=== PATIENT | male | born 1960 | race Caucasian/White ===

== ENCOUNTER 2019-12-20 10:49 | Emergency (ER) | payer OTHER, SELFPAY ==
[2019-12-20 11:04] VITALS: BP 138/69; PULSE 61; RESP 18; TEMP 35.8; O2SAT 99; BMI 28.7
--- NOTE | 2019-12-20 11:13 | PC.NURSE ---
denies any loss of bowel or bladder function. denies numbness
--- NOTE | 2019-12-20 11:23 | DI.RAD.S_ITS ---
PROCEDURE: XR HIP W PEL IF DONE LT 2V INDICATIONS: left lateral hip pain down to groin, hx DJD TECHNIQUE: AP pelvis with lateral view(s) of the left hip(s). COMPARISON: None. FINDINGS: Bones: No definite, displaced fractures are seen. No dislocation. No suspicious lytic or blastic lesions are seen. There is moderate to severe superior joint space narrowing seen of left hip, with associated remodeling changes with subchondral sclerosis and osteophyte formation. Moderate degenerative changes are seen of the right hip. Age-appropriate lower lumbar spine degenerative changes are noted. Soft tissues: The visualized bowel gas pattern is normal. No suspicious soft tissue calcifications. IMPRESSION: Moderate to severe left hip degenerative change. If there is point tenderness (or other clinical suspicion for a fracture not seen on these images) then a dedicated CT or a short-term followup plain film series could be considered for further evaluation, as clinically appropriate. Dictated by: Toan Alexandre M.D. on 12/20/2019 at 11:19 Approved by: Toan Alexandre M.D. on 12/20/2019 at 11:21
--- NOTE | 2019-12-20 11:58 | ED_ITS ---
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 Patient denies fever, chills, nausea or vomiting. Reports had 3rd stem cell injection done about 5-6 weeks ago. Patient reports pain has been going on for last 3 weeks and has been treating himself with meloxicam and ice for bursitis after he spoke with his primary care physician in [place]. Patient felt improved symptoms but last 36 hours patient experienced recurring acute pain. He and significant are from [place] but they have been a boat in [facility]. Patient had road electrical bike for 45 minutes and also increased walking up and down the stairs and lifting heavy objects prior recurring pain in his left hip. Patient reports some heaviness, numbness occasionally in left lateral plantar foot. Patient reports left hip a feels little tight and possibly has mild swelling into the joint. Patient reports pain was very severe severe and rated as 10/10 with sharp, aching, pulsating, throbbing and he took his significant other's old pain medication hydrocodone 2 tabs at around 4:00 a.m. and had taken meloxicam 15 mg at 8:15 a.m. without much relief. Reports pain slightly decreased to 7/10 pain at this time. Patient reports pain increases with elevating and flexing affected leg or changing in position/movement and slightly improves with straightening out the leg. Patient's significant other inquiring about steroid joint injection with this to be done today. Related Data Previous Rx's Medication Instructions Recorded lidocaine 1 patch TOP Q24H PRN #30 each 12/20/19 oxycodone-acetaminophen [Percocet] 1 tab PO TID PRN #10 tab 12/20/19 prednisone 40 mg PO DAILY 4 Days #8 tab 12/20/19 Allergies Allergy/AdvReac Type Severity Reaction Status Date / Time No Known Drug Allergies Allergy Verified 12/20/19 12:16 Review of Systems <JORDON Lauren - Last Filed: 12/20/19 13:06> Review of Systems Narrative: General: Denies fever, chills, fatigue, malaise, sweats. HEENT: Denies sinus pain, ear pain, sore throat, difficulty swallowing, dizziness. Respiratory: Denies dyspnea, cough, wheezing, hemoptysis, sputum. Cardiovascular: Denies chest pain, palpitations, orthopnea, edema. Gastrointestinal: Denies nausea, vomiting, abdominal pain, diarrhea, constipation, melena. : Denies dysuria, frequency, incontinence, hematuria, urinary retention. Musculoskeletal: See HPI Skin: Denies rash, skin lesions, or other. Neurologic: Denies weakness, headache, numbness, change in speech, confusion, seizures, incoordination. Psychiatric: No concerning psychosocial issues. 12-point review of systems is negative except for those stated above. Patient History <JORDON Lauren - Last Filed: 12/20/19 13:06> Medical History (Updated 12/20/19 @ 12:36 by JORDON Lauren) Degenerative joint disease of left hip (Acute) Social History Smoking Status: Never smoker Smoking Status: Never smoker alcohol intake frequency: 3 or more drinks per day Substance Use Type: marijuana Exam <JORDON Lauren - Last Filed: 12/20/19 13:06> Narrative Exam Narrative: General appearance: well developed, well nourished, in no acute distress. Head: normocephalic, atraumatic, no scalp lesions, non-tender. ENT: Hearing grossly intact. Airway patent. Neck/Thyroid: neck supple, full range of motion, no visible masses or meningeal signs. No JVD, non-tender without lymphadenopathy. Skin: no suspicious rashes, lesions over visible areas. Warm and dry and appropriate color for ethnicity. Heart: no clubbing, no cyanosis, no edema. Lungs: Breathing even and unlabored. No stridor. No accessory muscles used. Able to speak in full sentences. Chest: normal shape and expansion. Abdomen: non-obese, non-distended. Neurologic: alert and oriented. Cognitive exam, [employer] and PNS grossly intact on informal exam. Psych: good eye contact, normal affect. Initial Vital Signs Initial Vital Signs: Vital Signs Temperature 96.5 F L 12/20/19 11:04 Pulse Rate 61 12/20/19 11:04 Respiratory Rate 18 12/20/19 11:04 Blood Pressure 138/69 12/20/19 11:04 Pulse Oximetry 99 12/20/19 11:04 Extrem General: normal to inspection and full ROM Left lower extremity: hip/thigh Details: normal to inspection, tenderness Location: of the hip Location: laterally, posteriorly and anterolaterally and normal ROM; no swelling, no lacerations, no crepitus, no deformity and no unusual warmth and foot Details: normal to inspection, toes with normal ROM, no edema, vascular exam Details: dorsalis pedis pulse present and normal capillary refill, tendon exam Details: active flexion normal and active extension normal and motor-sensory exam Details: light-touch normal; no tenderness and no unusual warmth <Ariel Valles DO - Last Filed: 12/20/19 13:59> Initial Vital Signs Initial Vital Signs: Vital Signs Temperature 96.5 F L 12/20/19 11:04 Pulse Rate 61 12/20/19 11:04 Respiratory Rate 18 12/20/19 11:04 Blood Pressure 138/69 12/20/19 11:04 Pulse Oximetry 99 12/20/19 11:04 Scores <JORDON Lauren - Last Filed: 12/20/19 13:06> GCS Felton coma scale eye opening: Spontaneous Felton coma scale verbal response: Orientated Felton coma scale motor response: Obey commands Brenda coma scale total score: 15 qSOFA Altered Mental Status (GCS <15): No Respiratory rate greater than/equal to 22: No Systolic blood pressure less than or equal to 100: No qSOFA Total: 0 0-1 Not High Risk 1-3 High risk Course <JORDON Lauren - Last Filed: 12/20/19 13:06> Orders Ordered: ED Orders 12/20/19 11:23 XR hip w pel if done LT 2V Stat Discontinued Medications Hydromorphone HCl (Dilaudid) 1 mg IM NOW ONE Stop: 12/20/19 11:24 Last Admin: 12/20/19 12:23 Dose: Not Given Documented by: MP Hydromorphone HCl (Dilaudid) 0.5 mg IM NOW ONE Stop: 12/20/19 12:13 Last Admin: 12/20/19 12:19 Dose: 0.5 mg Documented by: MP Ketorolac Tromethamine (Toradol) 30 mg IM NOW ONE Stop: 12/20/19 11:24 Last Admin: 12/20/19 12:22 Dose: 30 mg Documented by: MP Lidocaine (Lidoderm) 1 each TOP NOW ONE Stop: 12/20/19 11:24 Last Admin: 12/20/19 12:21 Dose: 1 each Documented by: MP Lidocaine (Lidoderm (Remove Patch)) 1 each TOP BEDTIME LAZARO Pantoprazole Sodium (Protonix) 20 mg PO NOW ONE Stop: 12/20/19 11:27 Last Admin: 12/20/19 12:21 Dose: 20 mg Documented by: MP Prednisone (Deltasone) 40 mg PO NOW ONE Stop: 12/20/19 11:27 Last Admin: 12/20/19 12:21 Dose: 40 mg Documented by: MP Vital Signs Vital signs: Vital Signs - 8 hr 12/20/19 11:04 12/20/19 13:17 Temperature 96.5 F L Pulse Rate 61 78 Respiratory Rate 18 15 Blood Pressure 138/69 122/76 Pulse Oximetry 99 100 <Ariel Valles DO - Last Filed: 12/20/19 13:59> Orders Ordered: ED Orders 12/20/19 11:23 XR hip w pel if done LT 2V Stat Discontinued Medications Hydromorphone HCl (Dilaudid) 1 mg IM NOW ONE Stop: 12/20/19 11:24 Last Admin: 12/20/19 12:23 Dose: Not Given Documented by: MP Hydromorphone HCl (Dilaudid) 0.5 mg IM NOW ONE Stop: 12/20/19 12:13 Last Admin: 12/20/19 12:19 Dose: 0.5 mg Documented by: MP Ketorolac Tromethamine (Toradol) 30 mg IM NOW ONE Stop: 12/20/19 11:24 Last Admin: 12/20/19 12:22 Dose: 30 mg Documented by: MP Lidocaine (Lidoderm) 1 each TOP NOW ONE Stop: 12/20/19 11:24 Last Admin: 12/20/19 12:21 Dose: 1 each Documented by: MP Lidocaine (Lidoderm (Remove Patch)) 1 each TOP BEDTIME LAZARO Pantoprazole Sodium (Protonix) 20 mg PO NOW ONE Stop: 12/20/19 11:27 Last Admin: 12/20/19 12:21 Dose: 20 mg Documented by: MP Prednisone (Deltasone) 40 mg PO NOW ONE Stop: 12/20/19 11:27 Last Admin: 12/20/19 12:21 Dose: 40 mg Documented by: MP Vital Signs Vital signs: Vital Signs - 8 hr 12/20/19 11:04 12/20/19 13:17 Temperature 96.5 F L Pulse Rate 61 78 Respiratory Rate 18 15 Blood Pressure 138/69 122/76 Pulse Oximetry 99 100 MDM - Extremity (Nontraumatic) <JORDON Lauren - Last Filed: 12/20/19 13:06> Differential Diagnosis Differential diagnosis: Likely other (DJD hip, bursitis, infection, fracture) Medical Records Attestation: I reviewed the patient's medical records. Imaging Data XR-Hip LT: Radiologist's Impression: [address] [id number] XRay Report Signed Patient: JESSIE HENDERSON EMR#: [id number] : 1960Acct:[id number] Age/Sex: 59 / MDate of Service: 12/20/19 Loc: ED Accession Number: [id number] Procedure: XR hip w pel if done LT 2V Ordering Provider: Helio Renteria PROCEDURE: XR HIP W PEL IF DONE LT 2V INDICATIONS: left lateral hip pain down to groin, hx DJD TECHNIQUE: AP pelvis with lateral view(s) of the left hip(s). COMPARISON: None. FINDINGS: Bones: No definite, displaced fractures are seen. No dislocation. No suspicious lytic or blastic lesions are seen. There is moderate to severe superior joint space narrowing seen of left hip, with associated remodeling changes with subchondral sclerosis and osteophyte formation. Moderate degenerative changes are seen of the right hip. Age-appropriate lower lumbar spine degenerative changes are noted. Soft tissues: The visualized bowel gas pattern is normal. No suspicious soft tissue calcifications. IMPRESSION: Moderate to severe left hip degenerative change. If there is point tenderness (or other clinical suspicion for a fracture not seen on these images) then a dedicated CT or a short-term followup plain film series could be considered for further evaluation, as clinically appropriate. Dictated by: Toan Alexandre M.D. on 12/20/2019 at 11:19 Approved by: Toan Alexandre M.D. on 12/20/2019 at 11:21 MDM Narrative Medical decision making narrative: This is a 59-year-old male who presents to ED with nontraumatic left posterolateral hip pain radiating down to his groin for last 3 weeks and worsening for last 36 hours. Patient has 3rd stem cell injection on affected site about 5-6 weeks ago. No signs of infection, patient is afebrile with normotensive, heart rate and respiration. Patient reports before acute pain occurred he has increased physical activities by writing electrical bike and walking up and down the stairs and carrying heavy objects. X-ray test does not show acute findings such as fractures or dislocations. Significant other requesting steroid injection to the joint or MRI test which is not available ED today. Patient's pain was managed with injection of Dilaudid and Toradol, lidocaine patch, prednisone oral. Patient advised to follow-up with his primary care physician/orthopedist for further intervention and possible imaging test. Patient discharged to home with previous medications for acute pain management with return precautions. Patient and spouse verbalized understanding and agreement with the treatment plan. Discharge Plan Departure Patient Disposition: Home Clinical Impression: Joint pain of left hip on movement Discharge Date/Time: 12/20/19 13:18 Instructions: DI for Hip Pain Activity Restrictions/Additional Instructions: You have been diagnosed with [ left hip pain, likely from degenerative joint in left hip/bursitis.] What to do: *Take your medications as directed. Please continue with prednisone next 4 more days. You can continue to use meloxicam. Add Tylenol as needed for discomfort. Lidocaine patch on affected site as needed for pain. You can use OTC omeprazole to protect stomach when you're taking steroids and meloxicam. Percocet is narcotic medication and use it for severe pain. Percocet contains 325 mg of Tylenol as well. As an adult, you can take up to 3-4000 mg of Tylenol products in 24 hour period. *Follow up with your primary care provider in 2-3 days, call for an appointment. Let them know you were seen in the ED and that we asked you to be seen in follow up. *Return to ED if you have any new, worsening, or concerning symptoms, such as [worsening pain, fever, chills, unable to tolerate fluids, decreased strength or sensation on affected leg, chest pain, breathing difficulty, or any acute concerns]. Prescriptions: New prednisone 20 mg tablet 40 mg PO DAILY 4 Days Qty: 8 RF: 0 lidocaine 5 % adhesive patch,medicated 1 patch TOP Q24H PRN (Reason: Pain) Qty: 30 RF: 0 oxycodone-acetaminophen [Percocet] 5-325 mg tablet 1 tab PO TID PRN (Reason: pain) Qty: 10 RF: 0 Referrals: [facility] [Provider Group] <Ariel Valles DO - Last Filed: 12/20/19 13:59> Cosign ED Attending Timothyature Attestation: I was immediately available in the department for consultation. This documentation has been reviewed and I agree with assessment and plan. Supervised by Ariel Valles DO
[2019-12-20] MEDS: HYDROMORPHONE 1 MG INJ 0.5 MG IM (12:19)
[2019-12-20] MEDS: LIDOCAINE PATCH 1 EACH ADH..PATCH TOP (12:21)
[2019-12-20] MEDS: PANTOPRAZOLE 20 MG TABLET PO (12:21)
[2019-12-20] MEDS: predniSONE 20 MG TABLET 40 MG PO (12:21)
[2019-12-20] MEDS: KETOROLAC 60 MG/2 ML VIAL 30 MG IM (12:22)
[2019-12-20 13:17] VITALS: BP 122/76; PULSE 78; RESP 15; O2SAT 100
== END 2019-12-20 13:18 | disposition home or self-care (01) ==
PROVIDERS: Emergency Provider Nurse Practitioner Family
DX: M25.552 Pain in left hip (principal)
CPT/HCPCS: 73502; 96372; 99283; J1170; J1885